=== PATIENT | male | born 1950 | race Caucasian/White ===

== ENCOUNTER 2021-06-22 18:11 | Emergency (ER) | payer MEDICARE, OTHER ==
[~2021-06-22] VITALS: Ht 175.3 cm; Wt 95.0 kg
--- NOTE | 2021-06-22 18:14 | PHYS DOC ---
Adult General HPI HPI Patient is a 71-year-old male status post knee replacement a week ago who presents with fever and uncontrolled pain. States he has some oxycodone at home but only took one today because it hurt so bad he did not feel like taking any pain medicine. States that he had a fever at home earlier in the day of 101 and took 650 mg of Tylenol this morning. States they called his surgeon and was directed to the emergency department. Denies any other recent traumas, travels, illnesses, chest pain, shortness of breath, abdominal pain, nausea, vomiting. States he is eating and drinking normally for him. States he is making urine and stool normally for him. Denies any history of VTE. Review of Systems Review of Systems Review of systems otherwise unremarkable except noted in HPI Physical Exam Physical Exam Constitutional: Well developed, well nourished, no acute distress, non-toxic appearance. [] HENT: Normocephalic, atraumatic, bilateral external ears normal, oropharynx moist, no oral exudates, nose normal. [] Eyes: conjunctiva normal, no discharge. [] Neck: Normal range of motion, no tenderness, supple, no stridor. [] Cardiovascular: Sinus tachycardia Lungs & Thorax: Bilateral breath sounds clear to auscultation [] Abdomen: soft, no tenderness, Skin: Warm, dry, no erythema, no rash. [] Back: No tenderness, Extremities: Neurovascular exam intact. Left lower extremity from the knee down with some edema that is pitting, and some warmth and erythema around surgical wound. Pain on palpation around the left knee. Neurologic: Alert and oriented X 3, normal motor function, normal sensory function, no focal deficits noted. [] Psychologic: Affect normal, judgement normal, mood normal. [] EKG EKG [] Radiology/Procedures Radiology/Procedures [] Heart Score C/O Chest Pain: No Risk Factors: Risk Factors: DM, Current or recent (<one month) smoker, HTN, HLP, family history of CAD, obesity. Risk Scores: Risk Factors: DM, Current or recent (<one month) smoker, HTN, HLP, family history of CAD, obesity. Course & Med Decision Making Course & Med Decision Making Patient is a 71-year-old male status post knee replacement who presents with fever Vital signs notable for tachycardia. Physical exam noted above. EKG with a rate of 110, QRS of 80, QTc of 430, no STEMI. Troponin not concerning. Laboratory analysis notable for hypomagnesemia. Knee x-ray nonconcerning. Ultrasound DVT stud not concerning. Replace magnesium. On reassessment patient's vital signs improved as did pain. Started on antibiotics in the ED. Discussed all findings with family. Discussed symptom management at home. Advised to follow-up first thing in the morning with his orthopedic surgeon to let them know he was here and set up an immediate follow-up Gave strict return precautions to the ED. Patient grateful, verbalized understanding and agreed with plan of discharge. Dragon Disclaimer Dragon Disclaimer This electronic medical record was generated, in whole or in part, using a voice recognition dictation system. Departure Departure: Impression: Primary Impression: Fever Additional Impression: Painful total knee replacement Disposition: HOME / SELF CARE / HOMELESS Condition: STABLE Referrals: MARYAN BROWN MD Patient Instructions: Knee Rehabilitation, Guidelines Following Surgery, RICE - Routine Care for Injuries Additional Instructions: Thank you for coming into the emergency department tonight and allowing us to take care of you. Please read the attached information carefully to go over things we discussed. Please continue a regimen of ibuprofen and your oxycodone at home as well as the other strategies outlined in your discharge. As we discussed, please take your oxycodone every 4 hours as needed until tomorrow when you call your orthopedic surgeon. Please be sure to call your orthopedic surgeon first thing in the morning to update on your ED visit and set up an immediate follow-up visit for reevaluation. Please take your antibiotics as prescribed and until gone unless your orthopedic surgeon advises otherwise. Please come back with new or concerning symptoms as discussed. Scripts Amoxicillin (AMOXICILLIN) 875 Mg Tablet 1 TAB PO BID for wound for 10 Days, #19 TAB Prov: RENO PUENTE MD 06/22/21 Problem Qualifiers RENO PUENTE MD Jun 22, 2021 18:14
[2021-06-22] MEDS ORDERED: ONDANSETRON PF 4 MG/2 ML VIAL. IVP ONE (18:30)
[2021-06-22] MEDS ORDERED: IV RINGERS SOLUTION,LACTATED 1,000 ML IV ONE (18:30)
[2021-06-22] MEDS ORDERED: MORPHINE SULFATE 4 MG/ML DISP.SYRIN. IV ONE (18:30)
[2021-06-22 18:57] LABS: BASO % 0 % (0-3); EOS % 0 % (0-3); HEMATOCRIT 30.4 % (39.0-53.0); HEMOGLOBIN 10.3 g/dL (13.0-17.5); LYMPH # 0.4 x10^3/uL (1.0-4.8); LYMPH % 4 % (24-48); MEAN CORPUSCULAR HEMOGLOBIN 33 pg (25-35); MEAN CORPUSCULAR HGB CONC 34 g/dL (31-37); MEAN CORPUSCULAR VOLUME 96 fL (79-100); MONO # 0.6 x10^3/uL (0.0-1.1); MONO % 6 % (0-9); NEUT # 8.6 x10^3uL (1.8-7.7); NEUT % 89 % (31-73); PLATELET COUNT 255 x10^3/uL (140-400); RED BLOOD COUNT 3.16 x10^6/uL (4.30-5.70); RED CELL DISTRIBUTION WIDTH 12.7 % (11.5-14.5); WHITE BLOOD COUNT 9.6 x10^3/uL (4.0-11.0)
[2021-06-22 19:04] LABS: CREATININE 0.9 mg/dL (0.7-1.3); GFR 83.2; POTASSIUM 4.1 mmol/L (3.5-5.1)
--- NOTE | 2021-06-22 19:13 | RAD ---
Left Knee: 06/22/2021 6:39 PM. Reason for study: Status post left knee replacement with pain. Comparison: None. Technique: Two views of the left knee are obtained. Findings: There are findings consistent with recent left total knee arthroplasty, with hardware in good alignme nt and position. Immediate postsurgical changes within the regional soft tissues are noted. No compli cations are evident. No acute fracture dislocation. Impression: Status post left total knee arthroplasty no acute fracture or dislocation. Electronically signed by: Sadaf Sanchez MD (06/22/2021 7:10 PM) JOEL
[2021-06-22 19:19] LABS: ALBUMIN 3.2 g/dL (3.4-5.0); ALBUMIN/GLOBULIN RATIO 0.9 (1.0-1.7); MAGNESIUM 1.4 mg/dL (1.8-2.4); TOTAL BILIRUBIN 1.2 mg/dL (0.2-1.0); TOTAL PROTEIN 6.6 g/dL (6.4-8.2)
[2021-06-22 19:21] VITALS: BP 145/61
[2021-06-22] MEDS ORDERED: MAGNESIUM OXIDE 400 MG TABLET PO ONE (19:45)
--- NOTE | 2021-06-22 20:11 | RAD ---
Examination: Left Lower Extremity Venous Doppler Ultrasound History: Postop left knee replacement, pain Comparison: None Procedure: Moser scale, color flow 2D and spectal waveform analysis images are obtained with and witho ut compression in the area of the common femoral vein, superficial femoral vein - femoral vein juncti on, main femoral vein (superficial femoral vein) and popliteal vein. Veins of the proximal calf are a lso imaged. Findings: There is normal duplex flow, color flow and compressibility of all visualized vein segments. No evide nce of deep venous thrombus is present. Left inguinal lymph node measuring 1.7 cm. Impression: No evidence of DVT in the left lower extremity venous system. Electronically signed by: Juan Cooper MD (06/22/2021 8:09 PM) [id number]
[2021-06-22] MEDS ORDERED: AMOX875T PO (20:23)
[2021-06-22] MEDS ORDERED: oxyCODONE/APAP 5/325 1 TAB TABLET PO ONE (20:30)
[2021-06-22] MEDS ORDERED: AMOXICILLIN/K CLAV 875/125MG TABLET. PO ONE (20:30)
[2021-06-22] MEDS ORDERED: AMOX1TAB11 PO (20:47)
--- NOTE | 2021-06-22 23:46 | EKG ---
[facility] ED [facility] [address] [place] [id number] Test Date: 2021-06-22 Test Time: 19:02:05 Pat Name: DON VICTORIA Department: Room: Gender: M [employer] Supervisor: CHRISTIANA : 1950 Requested By: RENO PUENTE Order Number: [id number] Reading MD: Yariel Schultz Measurements Intervals Moran Rate: 110 P: 11 FL: 174 QRS: 11 QRSD: 80 T: 20 QT: 314 QTc: 430 Interpretive Statements SINUS TACHYCARDIA Electronically Signed On 06-27-2021 21:47:27 CDT by Yariel Schultz
== END 2021-06-22 20:52 | disposition home or self-care (01) ==
LOC: ER 18:11
DX: T84.84XA Pain due to internal orthopedic prosthetic devices, implants and grafts, initial encounter (principal); R50.9 Fever, unspecified; Z96.652 Presence of left artificial knee joint; M79.662 Pain in left lower leg
CPT/HCPCS: 36415; 73562; 80053; 83605; 83735; 84484; 85025; 93005; 93971; 96361; 96374; 96375; 99285; J2270; J2405; J7120

== ENCOUNTER 2021-06-25 12:15 | Emergency (ER) | payer MEDICARE, OTHER ==
[~2021-06-25] VITALS: Ht 175.3 cm; Wt 95.0 kg
[~2021-06-25 12:15] MED LIST: AMOX1TAB11 PO; AMOX875T PO
[2021-06-25] MEDS ORDERED: MORPHINE SULFATE 4 MG/ML DISP.SYRIN. IV ONE ×2 (13:00→13:30)
[2021-06-25] MEDS ORDERED: ONDANSETRON PF 4 MG/2 ML VIAL. IVP ONE (13:00)
[2021-06-25 13:16] LABS: BASO # 0.1 x10^3/uL (0.0-0.2); BASO % 1 % (0-3); EOS % 0 % (0-3); HEMOGLOBIN 10.1 g/dL (13.0-17.5); LYMPH # 1.1 x10^3/uL (1.0-4.8); LYMPH % 8 % (24-48); MEAN CORPUSCULAR HEMOGLOBIN 33 pg (25-35); MEAN CORPUSCULAR HGB CONC 34 g/dL (31-37); MEAN CORPUSCULAR VOLUME 97 fL (79-100); MONO # 0.9 x10^3/uL (0.0-1.1); MONO % 7 % (0-9); NEUT # 11.4 x10^3uL (1.8-7.7); NEUT % 85 % (31-73); PLATELET COUNT 300 x10^3/uL (140-400); RED CELL DISTRIBUTION WIDTH 12.8 % (11.5-14.5); WHITE BLOOD COUNT 13.4 x10^3/uL (4.0-11.0)
[2021-06-25 13:20] LABS: CALCIUM 9.4 mg/dL (8.5-10.1); CREATININE 0.7 mg/dL (0.7-1.3); GFR 111.2; POTASSIUM 3.9 mmol/L (3.5-5.1)
[2021-06-25 13:26] LABS: ALBUMIN 3.3 g/dL (3.4-5.0); ALBUMIN/GLOBULIN RATIO 0.8 (1.0-1.7); TOTAL BILIRUBIN 0.8 mg/dL (0.2-1.0); TOTAL PROTEIN 7.3 g/dL (6.4-8.2)
--- NOTE | 2021-06-25 13:26 | EKG ---
[address] [address] Test Date: 2021-06-25 Test Time: 13:05:58 Pat Name: DON VICTORIA Department: Room: Gender: M Tax Assessor: ABEL : 1950 Requested By: IDRIS HARRISON Order Number: [id number] Reading MD: Yariel Schultz Measurements Intervals Davison Rate: 74 P: 38 NH: 172 QRS: 11 QRSD: 84 T: 46 QT: 390 QTc: 433 Interpretive Statements SINUS RHYTHM NORMAL ECG Electronically Signed On 06-27-2021 21:28:10 CDT by Yariel Schultz
--- NOTE | 2021-06-25 13:33 | RAD ---
EXAM: CHEST ONE VIEW. HISTORY: Chest/epigastric pain. COMPARISON: None. FINDINGS: A frontal view of the chest is obtained. There are no confluent infiltrates. There is no pneumothorax or pleural effusion. The heart is not en larged. A right total shoulder arthroplasty is noted. There is bulky heterotopic ossification along t he inferior glenoid. 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 IMPRESSION: 1. No confluent infiltrates. Electronically signed by: Fili Richardson MD (06/25/2021 1:31 PM) [id number]
--- NOTE | 2021-06-25 13:40 | PHYS DOC ---
Past History Past Surgical History: Appendectomy, Knee Replacement, Other Additional Past Surgical Histo: L3-S1 FUSED, RIGHT SHOULDER REPLACED Alcohol Use: None General Adult EDM: Chief Complaint: ABDOMINAL PAIN HPI: HPI: Patient is a 71-year-old male presents with epigastric abdominal pain. Patient reports that pain started last night but worsened today. Patient recently had knee surgery and have been seen in the emergency room for pain and fever. Patient also been complaining of constipation. Patient had 2 bowel movements today but were small. Patient reports taking stool softeners. Review of Systems: Review of Systems: ROS At least 10 ROS systems have been reviewed and are negative except as documented in the HPI. General: Negative except as outlined in HPI above. Skin: Negative except as outlined in HPI above. HEENT: Negative except as outlined in HPI above. Neck: Negative except as outlined in HPI above. Respiratory: Negative except as outlined in HPI above.. Cardiovascular: Negative except as outlined in HPI above. Abdomen: Negative except as outlined in HPI above. : Negative except as outlined in HPI above. Back/MSK: Negative except as outlined in HPI above. Neuro: Negative except as outlined in HPI above. Psych: Negative except as outlined in HPI above. Current Medications: Current Meds: Current Medications Medications (Trade) Dose Ordered Sig/Gabby Start Time Stop Time Status Last Admin Dose Admin Morphine Sulfate (Morphine 4mg Syringe) 4 mg 1X ONCE 06/25/21 13:30 06/25/21 13:31 DC 06/25/21 13:36 4 MG Ondansetron HCl (Zofran) 4 mg 1X ONCE 06/25/21 13:00 06/25/21 13:04 DC 06/25/21 12:59 4 MG Allergies: Allergies: Allergies Coded Allergies Type Severity Reaction Last Updated Verified peppermint Allergy Unknown 06/25/21 Yes Physical Exam: PE: Constitutional: Well developed, well nourished, no acute distress, non-toxic appearance. [] HENT: Normocephalic, atraumatic, bilateral external ears normal, oropharynx moist, no oral exudates, nose normal. [] Eyes: PERRLA, EOMI, conjunctiva normal, no discharge. [] Neck: Normal range of motion, no tenderness, supple, no stridor. [] Cardiovascular:Heart rate regular rhythm, no murmur [] Lungs & Thorax: Bilateral breath sounds clear to auscultation [] Abdomen: Bowel sounds normal, epigastric tenderness Skin: Warm, dry, no erythema, no rash. [] Back: No tenderness, no CVA tenderness. [] Extremities: No tenderness, no cyanosis, no clubbing, ROM intact, no edema. [] Neurologic: Alert and oriented X 3, normal motor function, normal sensory function, no focal deficits noted. [] Psychologic: Affect normal, judgement normal, mood normal. [] Current Patient Data: Labs: Laboratory Tests Test 06/25/21 12:51 White Blood Count 13.4 x10^3/uL (4.0-11.0) H Red Blood Count 3.10 x10^6/uL (4.30-5.70) L Hemoglobin 10.1 g/dL (13.0-17.5) L Hematocrit 30.0 % (39.0-53.0) L Mean Corpuscular Volume 97 fL (79-100) Mean Corpuscular Hemoglobin 33 pg (25-35) Mean Corpuscular Hemoglobin Concent 34 g/dL (31-37) Red Cell Distribution Width 12.8 % (11.5-14.5) Platelet Count 300 x10^3/uL (140-400) Neutrophils (%) (Auto) 85 % (31-73) H Lymphocytes (%) (Auto) 8 % (24-48) L Monocytes (%) (Auto) 7 % (0-9) Eosinophils (%) (Auto) 0 % (0-3) Basophils (%) (Auto) 1 % (0-3) Neutrophils # (Auto) 11.4 x10^3uL (1.8-7.7) H Lymphocytes # (Auto) 1.1 x10^3/uL (1.0-4.8) Monocytes # (Auto) 0.9 x10^3/uL (0.0-1.1) Eosinophils # (Auto) 0.0 x10^3/uL (0.0-0.7) Basophils # (Auto) 0.1 x10^3/uL (0.0-0.2) Sodium Level 133 mmol/L (136-145) L Potassium Level 3.9 mmol/L (3.5-5.1) Chloride Level 98 mmol/L (98-107) Carbon Dioxide Level 21 mmol/L (21-32) Anion Gap 14 (6-14) Blood Urea Nitrogen 12 mg/dL (8-26) Creatinine 0.7 mg/dL (0.7-1.3) Estimated GFR (Cockcroft-Gault) 111.2 BUN/Creatinine Ratio 17 (6-20) Glucose Level 202 mg/dL (70-99) H Calcium Level 9.4 mg/dL (8.5-10.1) Total Bilirubin 0.8 mg/dL (0.2-1.0) Aspartate Amino Transferase (AST) 29 U/L (15-37) Alanine Aminotransferase (ALT) 95 U/L (16-63) H Alkaline Phosphatase 225 U/L (46-116) H Total Protein 7.3 g/dL (6.4-8.2) Albumin 3.3 g/dL (3.4-5.0) L Albumin/Globulin Ratio 0.8 (1.0-1.7) L Lipase 61 U/L (73-393) L Vital Signs: Vital Signs Date Time Temp Pulse Resp B/P (MAP) Pulse Ox O2 Delivery O2 Flow Rate FiO2 06/25/21 13:36 20 96 Room Air 06/25/21 13:34 77 176/73 (107) 06/25/21 12:20 98.0 EKG: EKG: Sinus rhythm, heart rate [address] elevation or depression. Read by Dr. Rodrigues at 1309 [] Radiology/Procedures: Radiology/Procedures: []Examination: CT angiography chest with IV contrast HISTORY: History of chest pain COMPARISON: None available Technique: Axial CT angiographic images were performed with IV contrast. Coronal and sagittal 3-D MIP reformats are performed Exposure: One or more of the following individualized dose reduction techniques were utilized for this examination: 1. Automated exposure control 2. Adjustment of the mA and/or kV according to patient size 3. Use of iterative reconstruction technique FINDINGS: The central airways are patent. The heart size grossly appears unremarkable. Coronary artery calcifications identified. The caliber of the aorta grossly appears unremarkable. Mild aortic atherosclerosis There is no evidence of filling defect identified in the main pulmonary arterial trunk and right and left temporomandibular visualized lobar, segmental branches of pulmonary arteries. The lungs are clear. The visualized liver, spleen, adrenals grossly appears unremarkable. Surgical changes identified in the stomach. Moderate degenerative changes thoracic spine. IMPRESSION: 1. No evidence of pulmonary embolism. 2. Coronary artery calcifications. 3. The lungs are clear. Electronically signed by: Juan Cooper MD (06/25/2021 3:39 PM) [id number] Examination: CT abdomen pelvis without contrast HISTORY: History of abdominal pain COMPARISON: None available TECHNIQUE: Axial CT images of the abdomen pelvis were performed without contrast. Coronal and sagittal reformats are performed Exposure: One or more of the following individualized dose reduction techniques were utilized for this examination: 1. Automated exposure control 2. Adjustment of the mA and/or kV according to patient size 3. Use of iterative reconstruction technique FINDINGS: The bibasilar lungs are clear. No evidence of free air identified in the abdomen The evaluation of the solid organs is limited due to lack of IV contrast. The evaluation of bowel is limited due to lack of oral contrast. Mild degree attenuation noted in the liver likely hepatic steatosis. The gallbladder is moderately distended. Small echogenicities identified within the gallbladder likely sludge or gallstones. There is mild to moderate fat stranding identified about the common bile duct and the gallbladder. Surgical changes identified in the stomach. The visualized pancreas grossly appears unremarkable. The small bowel is nondilated. Feces and gas noted in the colon. Urinary bladder is mildly distended. Minimal fat stranding bilateral kidneys. Lumbar hardware identified. Severe intervertebral disc height loss identified throughout the lumbar spine. IMPRESSION: 1. Moderately distended gallbladder with small echogenicities identified within the gallbladder likely sludge or gallstones. There is mild to moderate fat stranding identified about the common bile duct and the gallbladder could be due to acute cholecystitis or cholangitis. Correlate with lab values. Recommend ultrasound and follow-up MRCP for better evaluation. 2. Mild hepatic steatosis. Electronically signed by: Juan Cooper MD (06/25/2021 3:52 PM) [id number] EXAM: CHEST ONE VIEW. HISTORY: Chest/epigastric pain. COMPARISON: None. FINDINGS: A frontal view of the chest is obtained. There are no confluent infiltrates. There is no pneumothorax or pleural effusion. The heart is not enlarged. A right total shoulder arthroplasty is noted. There is bulky heterotopic ossification along the inferior glenoid. 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 IMPRESSION: 1. No confluent infiltrates. Electronically signed by: Fili Richardson MD (06/25/2021 1:31 PM) [id number] US ABDOMEN OR LOWER BACK LIMITED: 06/25/2021 4:59 PM Indication: 71 years old Male. Right upper quadrant pain . Comparison: CT abdomen/pelvis 06/25/2021 TECHNIQUE: Sonographic evaluation of the right upper quadrant was performed utilizing grayscale and color Doppler imaging. FINDINGS: Liver: Homogenous normal echotexture.. There is hepatopedal flow within the portal venous system. Right hepatic lobe measures 21.6. Biliary system: CBD measures 3.8 mm. Gallbladder: Cholelithiasis with sludge in the gallbladder. There is gallbladder wall thickening. Sonographic Jaramillo sign: Positive Pancreas: Visualized head and uncinate process are unremarkable. Body and tail are not visualized. Right kidney: 11.6 x 5.2 x 5.5 cm. No hydronephrosis. Normal echotexture without focal mass or renal calculus. Free fluid:None. IMPRESSION: Sonographic findings suggestive of acute calculus cholecystitis. Hepatomegaly. Heart Score: C/O Chest Pain: No Risk Factors: Risk Factors: DM, Current or recent (<one month) smoker, HTN, HLP, family history of CAD, obesity. Risk Scores: Score 0 - 3: 2.5% MACE over next 6 weeks - Discharge Home Score 4 - 6: 20.3% MACE over next 6 weeks - Admit for Clinical Observation Score 7 - 10: 72.7% MACE over next 6 weeks - Early Invasive Strategies Course & Med Decision Making: Course & Med Decision Making Pertinent Labs and Imaging studies reviewed. (See chart for details) [] 71-year-old male presents with epigastric abdominal pain that started yesterday. Patient reports the pain as sharp and constant. Denies radiation of pain. No shortness of breath or chest pain. Patient recently was see here after knee replacement 9 days ago. Patient was placed on antibiotic due to running a fever. Work-up in ER consisted of CBC, CMP, urinalysis, EKG. Patient given 4 mg of morphine for pain. WBC is elevated at 13.4. D-dimer is also elevated 4.09. CTA of chest ordered. CTA is negative for PE. Patient is requesting more pain medication. Patient given second dose of morphine. Ultrasound shows concerns for cholecystitis. Patient is requesting more pain medication. Patient given 75 mics of fentanyl. Discussed all results with patient. Advised patient that I would need to transfer him to [facility] to be seen by general surgery and further management. Patient started on Zosyn. Spoke with surgeon, Dr. Amaya at [facility]. Dr. Amaya will accept patient for cholecystitis. Spoke with hospitalist, Dr. Latham at [facility], will be accepting patient. Patient requesting medication. Patient given 1 of Dilaudid. Max Disclaimer: Max Disclaimer: This electronic medical record was generated, in whole or in part, using a voice recognition dictation system. Departure Departure: Impression: Primary Impression: Acute calculous cholecystitis Disposition: 02 SHORT TERM HOSPITAL Condition: STABLE Referrals: ISAURA FUCHS MD (PCP) IDRIS HARRISON APRN Jun 25, 2021 13:40
[2021-06-25] MEDS ORDERED: IOHEXOL 350 MG/ML 100 ML VIAL. ONE (15:05)
[2021-06-25] MEDS ORDERED: IOHEXOL 350 MG/ML 100 ML VIAL. IV ONE (15:15)
--- NOTE | 2021-06-25 15:41 | RAD ---
Examination: CT angiography chest with IV contrast HISTORY: History of chest pain COMPARISON: None available Technique: Axial CT angiographic images were performed with IV contrast. Coronal and sagittal 3-D MIP reformats are performed Exposure: One or more of the following individualized dose reduction techniques were utilized for thi s examination: 1. Automated exposure control 2. Adjustment of the mA and/or kV according to patient size 3. Use of iterative reconstruction technique FINDINGS: The central airways are patent. The heart size grossly appears unremarkable. Coronary artery calcific ations identified. The caliber of the aorta grossly appears unremarkable. Mild aortic atherosclerosis There is no evidence of filling defect identified in the main pulmonary arterial trunk and right and left temporomandibular visualized lobar, segmental branches of pulmonary arteries. The lungs are clear. The visualized liver, spleen, adrenals grossly appears unremarkable. Surgical ch anges identified in the stomach. Moderate degenerative changes thoracic spine. IMPRESSION: 1. No evidence of pulmonary embolism. 2. Coronary artery calcifications. 3. The lungs are clear. Electronically signed by: Juan Cooper MD (06/25/2021 3:39 PM) [id number]
--- NOTE | 2021-06-25 15:55 | RAD ---
Examination: CT abdomen pelvis without contrast HISTORY: History of abdominal pain COMPARISON: None available TECHNIQUE: Axial CT images of the abdomen pelvis were performed without contrast. Coronal and sagitta l reformats are performed Exposure: One or more of the following individualized dose reduction techniques were utilized for thi s examination: 1. Automated exposure control 2. Adjustment of the mA and/or kV according to patient size 3. Use of iterative reconstruction technique FINDINGS: The bibasilar lungs are clear. No evidence of free air identified in the abdomen The evaluation of the solid organs is limited due to lack of IV contrast. The evaluation of bowel is limited due to lack of oral contrast. Mild degree attenuation noted in the liver likely hepatic steat osis. The gallbladder is moderately distended. Small echogenicities identified within the gallbladder likely sludge or gallstones. There is mild to moderate fat stranding identified about the common rigoberto e duct and the gallbladder. Surgical changes identified in the stomach. The visualized pancreas grossly appears unremarkable. The small bowel is nondilated. Feces and gas no sera in the colon. Urinary bladder is mildly distended. Minimal fat stranding bilateral kidneys. Lumbar hardware identified. Severe intervertebral disc height loss identified throughout the lumbar s pine. IMPRESSION: 1. Moderately distended gallbladder with small echogenicities identified within the gallbladder like ly sludge or gallstones. There is mild to moderate fat stranding identified about the common bile josé miguel t and the gallbladder could be due to acute cholecystitis or cholangitis. Correlate with lab values. Recommend ultrasound and follow-up MRCP for better evaluation. 2. Mild hepatic steatosis. Electronically signed by: Juan Cooper MD (06/25/2021 3:52 PM) [id number]
--- NOTE | 2021-06-25 18:17 | RAD ---
US ABDOMEN OR LOWER BACK LIMITED: 06/25/2021 4:59 PM Indication: 71 years old Male. Right upper quadrant pain . Comparison: CT abdomen/pelvis 06/25/2021 TECHNIQUE: Sonographic evaluation of the right upper quadrant was performed utilizing grayscale and c olor Doppler imaging. FINDINGS: Liver: Homogenous normal echotexture.. There is hepatopedal flow within the portal venous system. Rig ht hepatic lobe measures 21.6. Biliary system: CBD measures 3.8 mm. Gallbladder: Cholelithiasis with sludge in the gallbladder. There is gallbladder wall thickening. Son ographic Jaramillo sign: Positive Pancreas: Visualized head and uncinate process are unremarkable. Body and tail are not visualized. Right kidney: 11.6 x 5.2 x 5.5 cm. No hydronephrosis. Normal echotexture without focal mass or renal calculus. Free fluid:None. IMPRESSION: Sonographic findings suggestive of acute calculus cholecystitis. Hepatomegaly. Electronically signed by: Sadaf Sanchez MD (06/25/2021 6:15 PM) RICHIE
[2021-06-25] MEDS ORDERED: PIPERACILLIN/TAZOBACTAM 3.375 GM VIAL IV ONE ×3 (19:00→19:06)
[2021-06-25] MEDS ORDERED: PIPERACILLIN/TAZOBACTAM 3.375 GM in IV NORMAL SALINE 50ML 50 ML IV ONE (19:00)
[2021-06-25] MEDS ORDERED: IV NORMAL SALINE 50ML 50 ML ONE (19:05)
[2021-06-25] MEDS ORDERED: HYDROmorphone PF 1 MG/ML DISP.SYRIN IVP ONE (19:45)
[2021-06-25 20:40] VITALS: BP 172/78
== END 2021-06-25 20:50 | disposition short-term general hospital (02) ==
LOC: ER 12:21
DX: K81.0 Acute cholecystitis (principal); Z20.822 Contact with and (suspected) exposure to COVID-19; Z90.89 Acquired absence of other organs; Z88.8 Allergy status to other drugs, medicaments and biological substances
CPT/HCPCS: 36415; 71045; 71275; 74176; 76705; 80053; 83690; 85025; 85379; 93005; 96365; 96375; 96376; 99285; C9803; J1170; J2270; J2405; J2543; J3010; Q9967; U0003